=== PATIENT | female | born 1945 | race Caucasian/White ===

== ENCOUNTER → 2020-05-19 09:14 | Outpatient (BNVA) | payer SELFPAY | PROVIDERS: Visit Provider Surgery | DX: Z20.828 Contact with and (suspected) exposure to other viral communicable diseases (principal) | CPT/HCPCS: 87635 ==

== ENCOUNTER 2020-05-25 11:48 | Inpatient (IN) | payer SELFPAY ==
[2020-05-24 09:34] VITALS: BMI 31.6
[2020-05-25] VITALS (18 sets, daily range): BP systolic 90–190; BP diastolic 69–97; PULSE 50–92; RESP 13–20; TEMP 35.8–36.6; O2SAT 96–100
[2020-05-25] MEDS: sodium chloride 0.9% 1,000 ML 30 ML IV (07:05)
--- NOTE | 2020-05-25 08:21 | ANES.PREANE2 ---
Pre-Anesthetic Assessment Pre-Anesthetic Assessment: Height/Weight: Height 1.65 m Weight 86.183 kg Temp Pulse Resp BP Pulse Ox 97.2 F L 71 18 190/97 100 05/25/20 06:41 05/25/20 06:41 05/25/20 06:41 05/25/20 06:41 05/25/20 06:41 Proposed Procedure: Operation Date: 05/25/20 08:00 Proposed Procedures p repair/revision Incisional Hernia Repair 61981 K43.0 R10.11(Not Applicable) - Gunnar Majano MD Was Beta Checo taken within 24 hours: N/A Last intake: Intake Last Liquid Date 05/24/20 Last Liquid Time 18:30 Last Solid Date 05/24/20 Last Solid Time 18:30 Social: Social History: No alcohol and No tobacco Exam: Pre-Anes Outpt Exam: alert, oriented x 3, clear to auscultation bilaterally and regular rate & rhythm Airway: Submandibular: WNL Cervical ROM: WNL MP: 2 Dentition: False History/ROS: No significant history except as noted Anesthetic Plan: ASA status: 2 Anesthesia: General Risk of > 500 ml blood loss (7ml/kg in children): No Meds/Allergies Current Medications: Current Medications Generic Name Dose Route Start Last Admin Trade Name Freq PRN Reason Stop Dose Admin Sodium Chloride 1,000 mls @ 30 ml s/hr 05/25/20 06:45 05/25/20 07:05 Sodium Chloride 0.9% IV 05/26/20 06:44 30 mls/hr .Q24H MANN Administration Data Anesthesia Cardiac Studies: No Data to Display
--- NOTE | 2020-05-25 08:59 | W.PM.OPSUD ---
Surgery/Procedure H&P Update DATE OF PROCEDURE: May 25, 2020 DATE H&P PERFORMED: 05/16/20 H&P UPDATE INFORMATION: No changes to prior documentation PLANNED PROCEDURE: Operation Date: 05/25/20 08:00 Proposed Procedures p repair/revision Incisional Hernia Repair 13649 K43.0 R10.11(Not Applicable) - Gunnar Majano MD
--- NOTE | 2020-05-25 10:19 | PM.OP ---
Operative Report Date of procedure: May 25, 2020 Pre-op Diagnosis: Right ovarian mass Post-op diagnosis: same Post-op Findings: Complex right ovarian mass approximately 35 cm at its greatest dimension Procedure Done: Right oophorectomy Specimens removed/disposition: Right ovary and fallopian tube Surgeon: Israel Joya MD Parts Department Manager: Gunnar Majano MD Estimated blood loss (mL): 1 Complications: None Condition: stable Brief History: 74-year-old female in the operating room for hernia repair, with an incidental finding of right complex ovarian mass Procedure: I was notified by OR personnel for an intraoperative consultation by Dr. Majano who was performing a hernia repair and encounter an incidental finding of right complex ovarian mass. Intra-Op an ovarian mass was noted approximately 35 cm in size. Subsequently, the midline incision was extended with the scalpel and carried through the underlying layer of the fascia using the Bovie to accommodate the ovarian mass. The incision was taken down to the fascia. The fascia was opened up sharply. The fascia was extended to the length of the incision using the Austin scissors. At this time, the rectus muscles were dissected from the fascia superiorly. The right ovarian mas exteriorized from abdominal cavity. The infundibulopelvic ligament was identified and was grasp, clamped, sealed and cut with the Enseal sealer device. Then the Enseal device was serially used through the tubo-ovarian ligament and mesosalpinx to excise the ovarian mass. The right ovarian mass was excised without complications. Peritoneal cavity pelvic cavity was irrigated with normal saline, and peritoneal washings were sent for pathology. Patient tolerated the procedure well. Hemostasis was reassured and Dr. Becerra resume his surgery. Associated Problem List Diagnoses (1) Ovarian mass, right:
--- NOTE | 2020-05-25 11:04 | P.OP_ITS ---
Operative Report Date of procedure: May 25, 2020 Pre-op Diagnosis: 1. Incarcerated incisional hernia. 2. Cholelithiasis. Post-op Diagnosis: 1. Incarcerated incisional hernia. 2. Very large complex cystic mass originating from the right ovary. Procedure Done: 1. Reduction and repair of incarcerated incisional hernia. 2. Removal of very large (16 pound) right ovarian complex cystic mass. 3. Open cholecystectomy. Specimens removed/disposition: 1. Right ovary/complex cystic mass, incarcerated omentum, pelvic washings. 2. Gallbladder with contents. Surgeon: Gunnar Majano Director Retail Brand Development: Israel Joya Anesthesia: General Estimated blood loss (mL): 25 Condition: stable Disposition: PACU Procedure: The patient was brought to the operating room and was placed in a s upine position on the operating room table. General endotracheal anesthesia was induced. The abdomen was prepped and draped in a sterile fashion. An incision was carried out from the low epigastrium around the umbilicus back to the midline. Cautery was used to enter the subcutaneous tissue and the hernia sac was quickly identified. The patient had incarcerated omentum in the hernia and eventually this was ligated with ties of 2-0 Vicryl was excised along with the hernia sac. Upon trying to reduce the rest of the omentum, a large cystic mass was palpated in the abdomen. The incision was elongated slightly and it appeared the mass was coming from the right ovary. Dr. Joya from [facility] was called into the room and performed an excision of the right ovary with the complex cystic mass attached. See his dictation for details. After the large mass had been removed from the abdominal cavity the upper abdomen could be inspected. Dr. Joya had extended the midline incision almost up to the xiphoid process to get the large pelvic mass removed. This allowed palpation and visualization of the gallbladder. The patient had a large gallstone within the gallbladder. She had had some symptoms of right upper quadrant pain preoperatively, but I was not convinced the symptoms were from biliary colic. Since I originally thought the operation was going to be centered around the umbilicus, we had originally decided not to pursue a cholecystectomy. Given the fact that the gallbladder was now easily accessible, however, the decision was made to go ahead and perform a cholecystectomy. The Bookwalter retractor was used for exposure. A right angle clamp was used to dissect the infundibular region of the gallbladder and the cystic duct and cystic artery were identified. The structures were clipped and divided. The gallbladder was then grasped with a ring forceps and was removed from the liver bed using cautery. The patient had a small area of oozing from the liver bed that was somewhat hesitant to stop and so a piece of Surgicel was placed into the liver bed and all bleeding then ceased. The abdominal cavity was irrigated in all quadrants. A final look around the surgical sites revealed no problems. Given the fact that the large mass had been removed from the abdomen, there was now a lot of laxity with the abdominal wall and the previous hernia defect could be easily closed in the process of reclosing the midline fascia. The midline fascia was approximated using a running looped suture of #1 PDS. The subcutaneous tissue was irrigated and the skin was approximated with skin alisha. A sterile dressing was applied. A Mckeon catheter was inserted postoperatively by nursing. The patient was eventually taken to the recovery room in stable condition postoperatively.
[2020-05-25] MEDS: fentaNYL 50 mcg/mL INJ 2mL IVP (11:30)
[2020-05-25] MEDS: levalbuterol 0.63 mg/3 mL Neb INHALATION (12:44)
--- NOTE | 2020-05-25 13:07 | ANE.PACU2 ---
Inpatient post-anesthesia follow up: Airway intact: Yes Vital signs: Temperature 96.5 F Pulse Rate 55 Respiratory Rate 16 Blood Pressure 161/76 Pulse Oximetry 99 Oxygen Delivery Me thod Nasal Cannula Oxygen Flow Rate 2 Fraction of Inspir ed Oxygen Hydration adequate: Yes Nausea and vomiting: No Pain level: 2 Mental status: Baseline
--- NOTE | 2020-05-25 15:54 | P.DS_ITS ---
Discharge Providers Date of Admission: 05/25/20 11:48 Date of Discharge: May 25, 2020 Attending Provider at Admission: Gunnar Majano MD Attending Provider at Discharge: Gunnar Majano MD Primary Care Provider: Ghassan Choudhury MD Diagnoses at Discharge Discharge Diagnosis (1) Ovarian mass, right: Status: Acute (2) Incarcerated incisional hernia: Status: Acute (3) Cholelithiasis: Status: Acute Reason for Visit Reason for Visit: hernia repair Hospital Course Hospital Course This is a 74 year old white female with a known incarcerated ventral hernia who desired repair; she was also known to have cholelithiasis and some occasional right upper quadrant discomfort, but it wasn't clear that she was having symptoms of biliary colic. She had an ultrasound of the abdomen earlier this month, and told me she had gallstones and possible cystitis. She was taken to the operating room on 05-25-2020 and the incarcerated hernia was clearly identified (only contained omentum) but she was also found to have a huge cystic mass coming from the right ovary. Dr. Joya from [facility] was called into the room and removed the ovary/mass. As he had to extend the incision almost all the way to the xiphoid process to remove the mass intact, the gallbladder became very easy to identify and evaluate. The patient had a large stone in the gallbladder that could be palpated. Knowing that she had some symptoms of pain in the area at times, the decision was made to also remove her gallbladder to be sure another operation to get it removed in the future would not be necessary. The original plan was to fix the patient's hernia as an outpatient procedure; given the increased scope of the patient's surgery, arrangements were made for her to be admitted for inpatient care for postoperative pain control, etc. Nursing reported later that afternoon, however, that the patient was doing great and was anxious to go home. Her vital signs were stable, she had minimal discomfort, etc. Arrangements were made for the patient to go home after she was counceled regarding wound care, activity limitations, diet, etc. A follow up appointment will be made for the patient to see me in the office in 1-2 weeks. Physical Exam Narrative: EXAM NARRATIVE: VSS. Minimal serosanguinous saturation of inferior aspect of midline dressing. Urinary Catheter Management^: Mckeon: Cath Placed During This Visit: yes Urinary Catheter Date of Insertion: 05/25/20 Urinary Catheter Time of Insertion: 10:42 Discharge Data Data Completed and Pending: Pending at discharge Category Date Time Status Basic Metabolic P anneliese AM LABS Lab 05/26/20 04:00 Ordered Complete Blood Co unt w/Auto AM LABS Lab 05/26/20 04:00 Ordered Pathology: Surgic al [PTH] Routine Pth 05/25/20 11:23 Received Vitals: Last Vital Signs Temp 97.8 F 05/25/20 15:00 Pulse 79 05/25/20 15:39 Resp 18 05/25/20 15:39 BP 158/79 05/25/20 15:00 Pulse Ox 98 05/25/20 15:39 Discharge Plan Discharge Patient Disposition: Home Condition: Stable Prescriptions: New hydrocodone-acetaminophen 5-325 mg tablet 1 - 2 tab PO Q5H PRN (Reason: pain) Qty: 30 RF: 0 Discharge Orders: Discharge Order (Routine); Ordered 05/25/20 Ordered By: Gunnar Majano Referrals: Gunnar Majano MD [Physician] - 06/06/20 1:00 pm () Discharge Diet: Advance as tolerated Discharge Activity: Limit activity as instructed Activity Restrictions/Additional Instructions: 1. Discharge to home today. 2. Keep abdominal bandage on until Friday, then may remove and shower -- okay to get incision wet. No need to redress wound unless drainage is occurring. 3. Appointment to see Dr. Majano in 10-14 days as above. 4. Franklin 1-2 tablets every 5 hours by mouth as needed for pain. Dispense # 30, no refills. Avoid any strenuous activity. No lifting over 20 lbs. No repetetive bending, twisting, pushing, pulling, etc. Ambulate regularly, ok to go up and down stairs if needed. Discharge Attestations Time Spent in Discharge Care*: less than 30 min Quality Metrics Clinical Quality Measures During this hospital stay, did patient experience: None Coding Level of Care Code Acute Animal Breeder for [employer] Fwd Diagnoses Ovarian mass, right N83.8 Incarcerated incisional hernia K43.0 Cholelithiasis K80.20
== END 2020-05-25 17:15 | disposition home or self-care (01) | DRG 742 ==
LOC: MEDSURG 15:36
PROVIDERS: Obstetrics & Gynecology; Admitting Provider Surgery; PCP Family Medicine; Visit Provider Surgery
PROC: 0UT00ZZ Resection of Right Ovary, Open Approach (ICD-10-PCS; 2020-05-25 08:00)
PROC: 0FT40ZZ Resection of Gallbladder, Open Approach (ICD-10-PCS; CPT 47600; 2020-05-25 08:00)
DX: N83.8 Other noninflammatory disorders of ovary, fallopian tube and broad ligament (principal); K43.0 Incisional hernia with obstruction, without gangrene; K80.20 Calculus of gallbladder without cholecystitis without obstruction
CPT/HCPCS: 12345; 88112; 88304; 88305; 94640; C9290; J0131; J0690; J1100; J2405; J2704; J3010; J3490; J7030; J7614